=== PATIENT | male | born 1965 | race Hispanic/Latino ===

== ENCOUNTER 2017-06-16 14:59 | Emergency (ER) | payer BC ==
[2017-06-16 15:03] VITALS: BMI 28.8
[2017-06-16 15:08] VITALS: RESP 18; TEMP 97.6; O2SAT 96
[2017-06-16] MEDS ORDERED: Sodium Chloride 0.9% 1,000 ML IV STA (15:26)
[2017-06-16] MEDS ORDERED: Famotidine 20mg/50ml 20 MG/50 ML BAG IVPB STA (15:26)
--- NOTE | 2017-06-16 15:30 | ED PDOC ---
Arrival/HPI - General Chief Complaint: Headache Time Seen by Provider: 06/16/17 15:12 Historian: Patient - History of Present Illness Narrative History of Present Illness (Text): 06/16/17 15:27 This 52 year old male, whose past medical history includes anxiety, presents to the emergency room complaining of cough, feeling fatigue, and a mild scalp pain x 2 days. Patient denies PRAKASH, dizziness, parasthesias, diplopia, dysarthria, weakness, chest pain, abdominal pain, urinary symptoms, or abnormal gait. Patient admits taking the whole Klonopin tab last night and this morning, which caused him having blurred vision, which it has improved. Time/Duration: Other (see hpi) Context: Home Past Medical History - Provider Review Nursing Documentation Reviewed: Yes - Infectious Disease Hx of Infectious Diseases: None - Tetanus Immunization Tetanus Immunization: Unknown - Past Medical History Past Medical History: No Previous - Cardiac Hx Cardiac Disorders: No Hx Cardiac Arrhythmia: No Hx Congestive Heart Failure: No Hx Hypertension: No Hx Internal Defibrillator: No Hx Mitral Valve Prolapse: No Hx Pacemaker: No Hx Peripheral Edema: No - Pulmonary Hx Respiratory Disorders: Yes Hx Asthma: No Hx Bronchitis: Yes Hx Chronic Obstructive Pulmonary Disease (COPD): No Hx Emphysema: No - Neurological Hx Neurological Disorder: No - HEENT Hx HEENT Disorder: No Hx Blind: No Hx Cataracts: No Hx Deafness: No Hx Difficulty Chewing: No Hx Epistaxis: No Hx Glaucoma: No Hx Macular Degeneration: No - Renal Hx Renal Disorder: No Hx Renal Failure: No - Endocrine/Metabolic Hx Endocrine Disorders: No Hx Hyperthyroidism: No Hx Hypothyroidism: No - Hematological/Oncological Hx Blood Disorders: No Hx AIDS: No Hx Anemia: No Hx Cancer: No Hx Hepatitis A: No Hx Hepatitis B: No Hx Hepatitis C: No - Integumentary Hx Dermatological Disorder: No Hx Basal Cell Carcinoma: No Hx Eczema: No Hx Melanoma: No Hx Psoriasis: No Hx Squamous Cell Carcinoma: No - Musculoskeletal/Rheumatological Hx Arthritis: No Hx Falls: No - Gastrointestinal Hx Crohn's Disease: No Hx Diverticulitis: No Hx Gastroesophageal Reflux: No Hx Gastrointestinal Ulcer: No Hx Liver Failure: No - Genitourinary/Gynecological Hx Genitourinary Disorders: No Hx Hematuria: No Hx Incontinence: No Hx Prostate Problems: No Hx Sexually Transmitted Diseases: No Hx Urinary Tract Infection: No - Psychiatric Hx Anxiety: Yes Hx Depression: No Hx Emotional Abuse: No Hx Physical Abuse: No Hx Substance Use: No - Past Surgical History Past Surgical History: No Previous - Surgical History Hx Cardiac Catheterization: No Hx Coronary Stent: No Other/Comment: Rotator cuff sx 08/23/15 at [facility]; sx for deviated septum - Anesthesia Hx Anesthesia: Yes Hx Anesthesia Reactions: No Hx Malignant Hyperthermia: No - Suicidal Assessment Feels Threatened In Home Enviroment: No Family/Social History - Physician Review Nursing Documentation Reviewed: Yes Family/Social History: Other (noncontributory) Smoking Status: Never Smoked Hx Alcohol Use: No Hx Substance Use: No Hx Substance Use Treatment: No Allergies/Home Meds Allergies/Adverse Reactions: Allergies duloxetine HCl [From Cymbalta] Adverse Reaction (Verified 08/23/15 20:02) RASH fluoxetine HCl [From Prozac] Adverse Reaction (Verified 08/23/15 20:02) SHORTNESS OF BREATH levofloxacin Adverse Reaction (Verified 08/23/15 20:02) SHORTNESS OF BREATH Home Medications: Home Meds Medication Instructions Recorded Confirmed clonazePAM HALF TAB [Klonopin- 0.25 mg PO BID 08/23/15 06/16/17 HALF TAB] Review of Systems - Review of Systems Constitutional: Fatigue. absent: Weight Change, Fevers Eyes: Other (see hpi) ENT: Normal. absent: Sore Throat, Rhinorrhea Respiratory: Cough. absent: SOB, Sputum, Wheezing Cardiovascular: Normal. absent: Chest Pain Gastrointestinal: Nausea. absent: Abdominal Pain, Constipation, Diarrhea, Vomiting Genitourinary Male: Normal. absent: Dysuria, Frequency, Hematuria, Urinary Output Changes Musculoskeletal: Normal. absent: Back Pain, Neck Pain Skin: Normal Neurological: Headache. absent: Dizziness, Focal Weakness, Gait Changes, Speech Changes, Facial Droop, Disequilibrium, Seizure Endocrine: Normal Hemo/Lymphatic: Normal Psychiatric: Normal Physical Exam Vital Signs Temp Pulse Resp BP Pulse Ox 06/16/17 19:00 68 18 125/71 96 06/16/17 17:16 65 18 128/78 96 06/16/17 15:04 97.6 F 64 18 130/87 96 Temperature: Afebrile Blood Pressure: Normal Pulse: Regular Respiratory Rate: Normal Appearance: Positive for: Well-Appearing, Non-Toxic, Comfortable Pain Distress: None Mental Status: Positive for: Alert and Oriented X 3 - Systems Exam Head: Present: Atraumatic, Normocephalic Pupils: Present: PERRL Extroacular Muscles: Present: EOMI Conjunctiva: Present: Normal Mouth: Present: Moist Mucous Membranes Neck: Present: Normal Range of Motion Respiratory/Chest: Present: Clear to Auscultation, Good Air Exchange. No: Respiratory Distress, Accessory Muscle Use Cardiovascular: Present: Regular Rate and Rhythm, Normal S1, S2. No: Murmurs Abdomen: Present: Normal Bowel Sounds. No: Tenderness, Distention, Peritoneal Signs Back: Present: Normal Inspection Upper Extremity: Present: Normal Inspection. No: Cyanosis, Edema Lower Extremity: Present: Normal Inspection. No: Edema Neurological: Present: GCS=15, CN II-XII Intact, Speech Normal, Motor Func Grossly Intact, Normal Sensory Function, Normal Cerebellar Funct, Gait Normal, Other (Patient has a normal gait. No neuro focal deficits) Skin: Present: Warm, Dry, Normal Color. No: Rashes Psychiatric: Present: Alert, Oriented x 3, Normal Insight, Normal Concentration Medical Decision Making ED Course and Treatment: 06/16/17 18:55 Re-evaluation. Patient feels better. Discussed results and plan with patient who expresses understanding. All questions answered and there is agreement with the plan to discharge home with instructions. Patient stable for discharge. Return if symptoms persist or worsen. Patient feels better. He denies SI, HI, paranoia, or hallucination. Denies alcohol or illegal drug use. Patient has a normal gait, and speech. No neuro focal deficits. Patient was recommended to f/u PMD and GI doctor in 1-2 days. Re-evaluation Time: 18:55 Reassessment Condition: Re-examined, Improved - Lab Interpretations Lab Results: 06/16/17 15:50 06/16/17 15:50 Lab Results 06/16/17 18:35: Urine Color Yellow, Urine Appearance Clear, Urine pH 6.0, Ur Specific [place] 1.025, Urine Protein Negative, Urine Glucose (UA) Negative, Urine Ketones Trace H, Urine Blood Negative, Urine Nitrate Negative, Urine Bilirubin Negative, Urine Urobilinogen 0.2, Ur Leukocyte Esterase Negative 06/16/17 15:50: Sodium 140, Potassium 3.4 L, Chloride 104, Carbon Dioxide 23, Anion Gap 16, BUN 15, Creatinine 0.8, Est GFR ( Amer) > 60, Est GFR (Non- Af Amer) > 60, Random Glucose 91, Calcium 9.5, Total Bilirubin 1.1, AST 39, ALT 54, Alkaline Phosphatase 61, Total Protein 7.4, Albumin 4.0, Globulin 3.4, Albumin/Globulin Ratio 1.2 06/16/17 15:50: WBC 7.2, RBC 4.55, Hgb 13.8 L, Hct 40.7 L, MCV 89.5, MCH 30.3, MCHC 33.9, RDW 13.0, Plt Count 290, MPV 9.6, Gran % 56.4, Lymph % (Auto) 35.5 H , Warren % (Auto) 7.4 H, Eos % (Auto) 0.4 L, Baso % (Auto) 0.3, Gran # 4.03, Lymph # (Auto) 2.5, Warren # (Auto) 0.5, Eos # (Auto) 0.0, Baso # (Auto) 0.02 I have reviewed the lab results: Yes Interpretation: No clinic. lab abnormalty - RAD Interpretation Narrative RAD Interpretations (Text): 06/16/17 18:27 PROCEDURE: CT HEAD WITHOUT CONTRAST. HISTORY: PRAKASH COMPARISON: None available. TECHNIQUE: Axial computed tomography images were obtained through the head/brain without intravenous contrast. Radiation dose: Total exam DLP = 1019.79 mGy-cm. This CT exam was performed using one or more of the following dose reduction techniques: Automated exposure control, adjustment of the mA and/or kV according to patient size, and/or use of iterative reconstruction technique. FINDINGS: HEMORRHAGE: No intracranial hemorrhage. BRAIN: No mass effect or edema. The fletcher-white matter differentiation appears intact. Please note that MRI with diffusion imaging is more sensitive in the detection of acute ischemic event. VENTRICLES: No hydrocephalus. CALVARIUM: Unremarkable. PARANASAL SINUSES: Unremarkable as visualized. No significant inflammatory changes. MASTOID AIR CELLS: Unremarkable as visualized. No inflammatory changes. OTHER FINDINGS: None. IMPRESSION: No acute intracranial pathology identified. 06/16/17 18:55 Chest x-rays: NAD Radiology Orders: 06/16/17 15:23 CHEST TWO VIEWS (PA/LAT) [RAD] Stat 06/16/17 15:33 HEAD W/O CONTRAST [CT] Stat - Medication Orders Current Medication Orders: Discontinued Medications Famotidine (Pepcid 20mg/50ml Premix) 20 mg in 50 mls @ 100 mls/hr IVPB STAT STA Stop: 06/16/17 15:55 Last Admin: 06/16/17 15:41 Dose: 100 mls/hr eMAR Start Stop Document 06/16/17 15:41 EQ (Rec: 06/16/17 15:41 EQ [id number]) Intravenous Solution Start Date 06/16/17 Start Time 15:41 Sodium Chloride (Sodium Chloride 0.9%) 1,000 mls @ 999 mls/hr IV .Q1H1M STA Stop: 06/16/17 16:26 Last Admin: 06/16/17 15:40 Dose: 999 mls/hr eMAR Start Stop Document 06/16/17 15:40 EQ (Rec: 06/16/17 15:40 EQ [id number]) Intravenous Solution Start Date 06/16/17 Start Time 15:40 Ondansetron HCl (Zofran Inj) 4 mg IVP STAT STA Stop: 06/16/17 15:27 Last Admin: 06/16/17 15:40 Dose: 4 mg IVP Administration Document 06/16/17 15:40 EQ (Rec: 06/16/17 15:40 EQ [id number]) Charges for Administration # of IVP Administrations 1 Disposition/Present on Arrival - Present on Arrival Any Indicators Present on Arrival: No History of DVT/PE: No History of Uncontrolled Diabetes: No Urinary Catheter: No History of Decub. Ulcer: No History Surgical Site Infection Following: None - Disposition Have Diagnosis and Disposition been Completed?: Yes Diagnosis: Fatigue Disposition: HOME/ ROUTINE Disposition Time: 18:56 Patient Plan: Discharge Condition: GOOD Discharge Instructions (ExitCare): Fatigue (DC) Additional Instructions: Call private doctor tomorrow for follow up visit . Have a well balance diet, and drink enough fluids. Do not over take Klonopin since this could make you feel drowsy. Return to emergency if symptoms worsen. Referrals: Jd He MD [Primary Care Provider] - Follow up with primary Melvina Cano MD [Staff Provider] - Follow up with primary Garo Lee MD [Staff Provider] - Follow up with primary Forms: [employer] (Maltese), WORK NOTE
[2017-06-16 16:28] LABS: BASO # 0.02 K/mm3 (0.0-2.0); BASO % 0.3 % (0.0-3.0); EOS % 0.4 % (1.5-5.0); GRAN # 4.03 (1.4-6.5); GRAN % 56.4 % (50.0-68.0); HEMOGLOBIN 13.8 g/dL (14.0-18.0); LYMPH # 2.5 (1.2-3.4); LYMPH % 35.5 % (22.0-35.0); MEAN CELL VOLUME 89.5 fl (80.0-105.0); MEAN CORPUSCULAR HEMOGLOBIN 30.3 pg (25.0-35.0); MEAN CORPUSCULAR HGB CONC 33.9 g/dl (31.0-37.0); MEAN PLATELET VOLUME 9.6 fl (7.0-11.0); MONO # 0.5 (0.1-0.6); MONO % 7.4 % (1.0-6.0); RBC 4.55 10^6/uL (3.5-6.1); WHITE BLOOD COUNT 7.2 10^3/ul (4.5-11.0)
[2017-06-16 16:37] LABS: ALB/GLOB RATIO 1.2 (1.1-1.8); ALT/SGPT 54 U/L (7-56); AST/SGOT 39 U/L (17-59); BLOOD UREA NITROGEN 15 mg/dL (7-21); CALCIUM 9.5 mg/dL (8.4-10.5); GFR AFRICAN-AMERICAN > 60; GFR NON-AFRICAN AMERICAN > 60
--- NOTE | 2017-06-16 18:13 | CT ---
PROCEDURE: CT HEAD WITHOUT CONTRAST. HISTORY: PRAKASH COMPARISON: None available. TECHNIQUE: Axial computed tomography images were obtained through the head/brain without intravenous contrast. Radiation dose: Total exam DLP = 1019.79 mGy-cm. This CT exam was performed using one or more of the following dose reduction techniques: Automated exposure control, adjustment of the mA and/or kV according to patient size, and/or use of iterative reconstruction technique. FINDINGS: HEMORRHAGE: No intracranial hemorrhage. BRAIN: No mass effect or edema. The fletcher-white matter differentiation appears intact. Please note that MRI with diffusion imaging is more sensitive in the detection of acute ischemic event. VENTRICLES: No hydrocephalus. CALVARIUM: Unremarkable. PARANASAL SINUSES: Unremarkable as visualized. No significant inflammatory changes. MASTOID AIR CELLS: Unremarkable as visualized. No inflammatory changes. OTHER FINDINGS: None. IMPRESSION: No acute intracranial pathology identified.
[2017-06-16 18:47] LABS: URINE BILIRUBIN NEGATIVE (NEGATIVE); URINE BLOOD NEGATIVE (NEGATIVE); URINE GLUCOSE (UA) NEGATIVE (NEGATIVE); URINE LEUKOCYTE ESTERASE NEGATIVE Leu/uL (NEGATIVE); URINE NITRATE NEGATIVE (NEGATIVE); URINE PROTEIN NEGATIVE mg/dL (<30 mg/dL); URINE UROBILINOGEN 0.2 E.U./dL (<1 E.U./dL)
[2017-06-16 18:51] LABS: URINE APPEARANCE CLEAR (CLEAR); URINE COLOR YELLOW (YELLOW)
[2017-06-16 19:03] VITALS: BP 125/71; PULSE 68
--- NOTE | 2017-06-17 07:19 | RAD ---
HISTORY: cough COMPARISON: Portable chest 08/23/2015. TECHNIQUE: Chest PA and lateral FINDINGS: LUNGS: Improved inspiratory volume noted. No active pulmonary disease. Respiratory motion artifact noted in lateral view. PLEURA: No significant pleural effusion identified. No pneumothorax apparent. CARDIOVASCULAR: Normal. OSSEOUS STRUCTURES: No significant abnormalities. VISUALIZED UPPER ABDOMEN: Normal. OTHER FINDINGS: None. IMPRESSION: No interval acute cardiopulmonary disease appreciated. Improved inspiratory volume noted.
== END 2017-06-16 20:00 | disposition home or self-care (01) ==
LOC: ED 14:59
DX: R53.83 Other fatigue (principal)
CPT/HCPCS: 70450; 71046; 80053; 81003; 85025; 87086; 96374; 99285; J2405; J7040

== ENCOUNTER 2017-10-12 08:21 | Emergency (ER) | payer BC ==
[2017-10-12 08:23] VITALS: BMI 28.8
[2017-10-12 08:35] VITALS: RESP 18
--- NOTE | 2017-10-12 09:49 | ED PDOC ---
Arrival/HPI - General Historian: Patient - History of Present Illness Time/Duration: 1 week Symptom Onset: Gradual Symptom Course: Worsening Quality: Aching, Pressure Severity Level: 5 Activities at Onset: Rest, Light Context: Home <Neida Walton - Last Filed: 10/12/17 13:17> <Saw Iniguez - Last Filed: 10/14/17 13:45> - General Chief Complaint: Lower Extremity Problem/Injury Time Seen by Provider: 10/12/17 09:11 - History of Present Illness Narrative History of Present Illness (Text): 10/12/17 09:38 Pt is a 52 yr old male who presents with a right prepatellar fluctuant area that is warm, edematous and painful x 5 days. Pt reports seeing a small lesion on his knee 3 days ago that he picked at and cut with scissors, resulting in redness and swelling. Pt went to [facility] where he was evaluated via abscess aspiration and labs. As per pt, labs were normal however but was put on Bactrim but pt could not tolerate so has not taken it again. received call from [facility] that culture was positive for aspiration fluid and directed him to the ED for a septic joint workup. States he has tenderness over the wound and mild nausea, denies shortness of breath, cp, fever, knee joint pain, calf pain, altered sensation, abnormal gait or any othe complaints. (Neida Walton) Past Medical History - Provider Review Nursing Documentation Reviewed: Yes - Travel History Have you recently traveled outside [place] w/in the past 3 mons?: No - Infectious Disease Hx of Infectious Diseases: None - Tetanus Immunization Tetanus Immunization: Unknown - Past Medical History Past Medical History: No Previous - Cardiac Hx Cardiac Disorders: No Hx Cardiac Arrhythmia: No Hx Congestive Heart Failure: No Hx Hypertension: No Hx Internal Defibrillator: No Hx Mitral Valve Prolapse: No Hx Pacemaker: No Hx Peripheral Edema: No - Pulmonary Hx Respiratory Disorders: Yes Hx Asthma: No Hx Bronchitis: Yes Hx Chronic Obstructive Pulmonary Disease (COPD): No Hx Emphysema: No - Neurological Hx Neurological Disorder: No - HEENT Hx HEENT Disorder: No Hx Blind: No Hx Cataracts: No Hx Deafness: No Hx Difficulty Chewing: No Hx Epistaxis: No Hx Glaucoma: No Hx Macular Degeneration: No - Renal Hx Renal Disorder: No Hx Renal Failure: No - Endocrine/Metabolic Hx Endocrine Disorders: No Hx Hyperthyroidism: No Hx Hypothyroidism: No - Hematological/Oncological Hx Blood Disorders: No Hx AIDS: No Hx Anemia: No Hx Cancer: No Hx Hepatitis A: No Hx Hepatitis B: No Hx Hepatitis C: No - Integumentary Hx Dermatological Disorder: No Hx Basal Cell Carcinoma: No Hx Eczema: No Hx Melanoma: No Hx Psoriasis: No Hx Squamous Cell Carcinoma: No - Musculoskeletal/Rheumatological Hx Arthritis: No Hx Falls: No - Gastrointestinal Hx Crohn's Disease: No Hx Diverticulitis: No Hx Gastroesophageal Reflux: No Hx Gastrointestinal Ulcer: No Hx Liver Failure: No - Genitourinary/Gynecological Hx Genitourinary Disorders: No Hx Hematuria: No Hx Incontinence: No Hx Prostate Problems: No Hx Sexually Transmitted Diseases: No Hx Urinary Tract Infection: No - Psychiatric Hx Anxiety: Yes Hx Depression: No Hx Emotional Abuse: No Hx Physical Abuse: No Hx Substance Use: No - Past Surgical History Past Surgical History: No Previous - Surgical History Hx Cardiac Catheterization: No Hx Coronary Stent: No Other/Comment: Rotator cuff sx 08/23/15 at [facility]; sx for deviated septum - Anesthesia Hx Anesthesia: Yes Hx Anesthesia Reactions: No Hx Malignant Hyperthermia: No - Suicidal Assessment Feels Threatened In Home Enviroment: No <Neida Walton - Last Filed: 10/12/17 13:17> Family/Social History - Physician Review Nursing Documentation Reviewed: Yes Family/Social History: Unknown Family HX Smoking Status: Never Smoked Hx Alcohol Use: No Hx Substance Use: No Hx Substance Use Treatment: No <Neida Walton - Last Filed: 10/12/17 13:17> Allergies/Home Meds <Neida Walton - Last Filed: 10/12/17 13:17> <Saw Iniguez - Last Filed: 10/14/17 13:45> Allergies/Adverse Reactions: Allergies duloxetine HCl [From Cymbalta] Adverse Reaction (Verified 08/23/15 20:02) RASH fluoxetine HCl [From Prozac] Adverse Reaction (Verified 08/23/15 20:02) SHORTNESS OF BREATH levofloxacin Adverse Reaction (Verified 08/23/15 20:02) SHORTNESS OF BREATH Home Medications: Home Meds Medication Instructions Recorded Confirmed clonazePAM HALF TAB [Klonopin- 0.25 mg PO BID 08/23/15 10/12/17 HALF TAB] Review of Systems - Review of Systems Constitutional: Normal. absent: Fatigue, Fevers Eyes: Normal ENT: Normal Respiratory: Normal. absent: SOB Cardiovascular: Normal. absent: Chest Pain Gastrointestinal: Constipation, Nausea Genitourinary Male: Normal Musculoskeletal: Normal, Arthralgias (right knee and patella) Skin: Normal, Skin Lesions (right knee) Neurological: Normal Endocrine: Normal Hemo/Lymphatic: Normal Psychiatric: Normal <Neida Walton L - Last Filed: 10/12/17 13:17> Physical Exam Vital Signs Reviewed: Yes Temperature: Afebrile Blood Pressure: Normal Pulse: Regular Respiratory Rate: Normal Appearance: Positive for: Well-Appearing, Non-Toxic, Comfortable Pain Distress: Mild Mental Status: Positive for: Alert and Oriented X 3 - Systems Exam Head: Present: Atraumatic, Normocephalic Mouth: Present: Moist Mucous Membranes Neck: Present: Normal Range of Motion Respiratory/Chest: Present: Clear to Auscultation, Good Air Exchange. No: Respiratory Distress, Accessory Muscle Use Cardiovascular: Present: Regular Rate and Rhythm, Normal S1, S2. No: Murmurs Abdomen: No: Tenderness, Distention, Peritoneal Signs Back: Present: Normal Inspection Upper Extremity: Present: Normal Inspection. No: Cyanosis, Edema Lower Extremity: Present: Normal Inspection, NORMAL PULSES, Normal ROM, Tenderness (superficial patellar abscess with old lesion; no discharge present ) , Swelling (prepatellar bursa), Temperature Abnormalties (right knee), Capillary Refill < 2 s. No: Edema, CALF TENDERNESS, Cyanosis, Marcus's Sign Neurological: Present: GCS=15, CN II-XII Intact, Speech Normal, Motor Func Grossly Intact, Normal Sensory Function, Gait Normal Skin: Present: Warm, Dry, Normal Color, Abscess (superficial patella (bursa)). No: Rashes Lymphatic: No: Inguinal Adenopathy Psychiatric: Present: Alert, Oriented x 3, Normal Insight, Normal Concentration <Neida Walton - Last Filed: 10/12/17 13:17> Vital Signs Temp Pulse Resp BP Pulse Ox 10/12/17 13:15 98.0 F 65 18 123/79 98 10/12/17 11:49 69 18 120/76 98 10/12/17 11:21 60 18 127/87 96 10/12/17 08:34 98.3 F 85 18 124/87 98 Medical Decision Making <Neida Walton - Last Filed: 10/12/17 13:17> <Saw Iniguez - Last Filed: 10/14/17 13:45> ED Course and Treatment: 10/12/17 09:49 Impression Pt is a 52 yr old male who presents with a right prepatellar fluctuated area that is warm, edematous and painful x 5 days. Pt is non-compliant with medications; took Bactrim only once which caused nausea and stopped taking Plan Labs Rocephin IM STAT imaging of right knee Assess and Dispo Progress note 10/12/17 10:42 Spoke with ORIENTOR from [facility] who relayed decision making and evaluation that was done; corroborated with report that was sent Aspirated fluid from the knee is likely not synovial fluid but cannot be determined; no bacterial growth culture; all other labs wnl; Synovial/Fluid Panel ([facility]) Aspiration 10/07/17 Straw color, 210 total nucleated cell count, monocytes/macrophages 88, mucin clot poor, no crystals Cx of fluid revealed rare WBCs; no growth 10/12/17 12:08 pt began clearing throat after receiving rocephin im; on re-exam, no dysphagia or swelling of the throat, uvula midline, no reported pruritus 10/12/17 13:17 Pt advised to f/u with Dr Nieves in the office for further care Counseled on abx use and adverse effects; take with food and continue for 7 days Line drawn around the erythematous border of the abscess; told pt to watch for migration of redness beyond border; RT ED Advised to apply warm compresses on knee daily VSS and ambulated well (Neida Walton) 10/14/17 13:42 Patient on exam has FULL range of motion of right knee with minimal discomfort. There is no streaking. No hip or ankle pain. EXAM IS CURRENTLY NOT CONSISTENT WITH SEPTIC JOINT. He has been noncompliant with activity and antibitoics. We have stressed need to take antibiotics as likely there is a superficial cellulitis on knee. CURRENTLY there is no drainable abscess. There is no pus or drainage. I have informed patient directly that he most have knee rechecked in 1 -2 days. I have stressed risks of noncompliance with medication including risk of sepsis, worsening cellulitis, abscess, septic joint. He is able to repeat back these risks. (Saw Iniguez) - Lab Interpretations Lab Results: 10/12/17 10:55 10/12/17 10:55 Lab Results 10/12/17 10:55: Sodium 141, Potassium 4.0, Chloride 106, Carbon Dioxide 24, Anion Gap 15, BUN 19, Creatinine 0.9, Est GFR ( Amer) > 60, Est GFR (Non- Af Amer) > 60, Random Glucose 110, Calcium 9.1, Total Bilirubin 0.6, AST 34, ALT 40, Alkaline Phosphatase 82, Total Protein 7.4, Albumin 4.3, Globulin 3.2, Albumin/Globulin Ratio 1.4 10/12/17 10:55: WBC 8.0, RBC 4.72, Hgb 14.3, Hct 41.9 L, MCV 88.8, MCH 30.3, MCHC 34.1, RDW 13.2, Plt Count 237, MPV 9.1, Gran % 60.6, Lymph % (Auto) 27.0, [place] % (Auto) 10.3 H, Eos % (Auto) 1.5, Baso % (Auto) 0.6, Gran # 4.84, Lymph # (Auto) 2.2, [place] # (Auto) 0.8 H, Eos # (Auto) 0.1, Baso # (Auto) 0.05 - RAD Interpretation Radiology Orders: 10/12/17 11:35 KNEE RIGHT 2 VIEWS (AP & LAT) [RAD] Stat - Medication Orders Current Medication Orders: Discontinued Medications Ceftriaxone Sodium (Rocephin) 1 gm IM STAT STA PRN Reason: Protocol Stop: 10/12/17 10:39 Last Admin: 10/12/17 11:09 Dose: 1 gm IM Administration Charges Document 10/12/17 11:09 EQ (Rec: 10/12/17 11:09 EQ [id number]) Injection Site MAR Injection Site Left Deltoid Charges for Administration # of IM Administrations 1 Disposition/Present on Arrival - Present on Arrival Any Indicators Present on Arrival: Yes History of DVT/PE: No History of Uncontrolled Diabetes: No Urinary Catheter: No History of Decub. Ulcer: No History Surgical Site Infection Following: None - Disposition Have Diagnosis and Disposition been Completed?: Yes Disposition Time: 13:05 Patient Plan: Discharge <Neida Walton - Last Filed: 10/12/17 13:17> - Present on Arrival Any Indicators Present on Arrival: No <Saw Iniguez - Last Filed: 10/14/17 13:45> - Disposition Diagnosis: Cellulitis of knee Disposition: HOME/ ROUTINE Condition: GOOD Discharge Instructions (ExitCare): Skin Abscess, Bursitis (DC), Cellulitis (ED) Additional Instructions: LYDIA THORNTON, thank you for letting us take care of you today. Your provider was Saw Iniguez MD and SANTO Dutton, you were treated for a RIGHT PREPATELLAR BURSA INFECTION. The emergency medical care you received today was directed at your acute symptoms. If you were prescribed any medication, please fill it and take as directed. It may take several days for your symptoms to resolve. Return to the Emergency Department if your symptoms worsen, do not improve, or if you have any other problems. Please see the recommended orthopedist, Dr Nieves, in [place], [place], in the next 48 hrs hors for follow up care. Take the antibiotics that we have prescribed WITH FOOD to avoid stomach upset; apply warm compresses over the right knee, 15 mins on and 15 mins off. Watch for signs of spreading infection; if redness begins to travel outside of the line drawn on the knee, return to the Emergency Department. Please contact your doctor or call one of the physicians/clinics you have been referred to that are listed on the Patient Visit Information form that is included in your discharge packet. Bring any paperwork you were given at discharge with you along with any medications you are taking to your follow up visit. Our treatment cannot replace ongoing medical care by a primary care provider outside of the emergency department. Thank you for allowing the [facility] team to be part of your care today. If you had an X-Ray or CT scan: A Radiologist will review the ED reading if any change in treatment is needed we will contact you. If you had a blood, urine, or wound culture: It will take several days for the results, if any change in treatment is needed we will contact you. Prescriptions: Cephalexin [Keflex] 250 mg PO Q8 7 Days #21 cap Clindamycin [Cleocin] 300 mg PO QID 7 Days #28 cap Referrals: Juan Nieves MD [Staff Provider] - Follow up with primary Forms: [employer] ([place] [employer]), WORK NOTE
[2017-10-12] MEDS ORDERED: cefTRIAXone (Rocephin) 1 gm Inj IM STA (10:38)
[2017-10-12 11:13] LABS: BASO # 0.05 K/mm3 (0.0-2.0); BASO % 0.6 % (0.0-3.0); EOS # 0.1 (0.0-0.7); EOS % 1.5 % (1.5-5.0); GRAN # 4.84 (1.4-6.5); GRAN % 60.6 % (50.0-68.0); HEMOGLOBIN 14.3 g/dL (14.0-18.0); LYMPH # 2.2 (1.2-3.4); MEAN CELL VOLUME 88.8 fl (80.0-105.0); MEAN CORPUSCULAR HEMOGLOBIN 30.3 pg (25.0-35.0); MEAN CORPUSCULAR HGB CONC 34.1 g/dl (31.0-37.0); MEAN PLATELET VOLUME 9.1 fl (7.0-11.0); MONO # 0.8 (0.1-0.6); MONO % 10.3 % (1.0-6.0); RBC 4.72 10^6/uL (3.5-6.1); RED CELL DISTRIBUTION WIDTH 13.2 % (11.5-14.5)
[2017-10-12 11:42] LABS: ALB/GLOB RATIO 1.4 (1.1-1.8); ALBUMIN 4.3 g/dL (3.0-4.8); ALT/SGPT 40 U/L (7-56); AST/SGOT 34 U/L (17-59); BLOOD UREA NITROGEN 19 mg/dL (7-21); CALCIUM 9.1 mg/dL (8.4-10.5); GFR AFRICAN-AMERICAN > 60; GFR NON-AFRICAN AMERICAN > 60
[2017-10-12 11:49] VITALS: O2SAT 98
[2017-10-12] MEDS ORDERED: Alum-Mag Hydrox-Simethicone Susp (30 mL) PO STA (12:26)
[2017-10-12 13:16] VITALS: BP 123/79; PULSE 65; TEMP 98
--- NOTE | 2017-10-12 15:53 | RAD ---
PROCEDURE: Right Knee Radiographs. HISTORY: Knee pain COMPARISON: None. FINDINGS: BONES: Normal. No fracture. JOINTS: Joint effusion tiny posterior patellar osteophytes are felt present. Small anterior patella enthesophyte with what appears represent mild prepatellar soft tissue swelling JOINT EFFUSION: Suspect trace joint effusion OTHER FINDINGS: None. IMPRESSION: No evidence of acute displaced fracture nor dislocation. . There appears to be mild prepatellar soft tissue swelling. Suspect trace joint effusion.
== END 2017-10-12 13:20 | disposition home or self-care (01) ==
LOC: ED 08:21
DX: L03.115 Cellulitis of right lower limb (principal)
CPT/HCPCS: 73560; 80053; 85025; 96372; 99285; J0696